=== PATIENT | male | born 1935 | race Caucasian/White ===

== ENCOUNTER 2018-11-08 07:53 | Day surgery (SDC) | payer OTHER | END 2018-11-08 10:30 | disposition home or self-care (01) | LOC: FASU-ENDO 07:53 ==

== ENCOUNTER 2020-05-16 11:19 | Emergency (ER) | payer OTHER | END 2020-05-16 15:02 | disposition home or self-care (01) | LOC: JVIRT 11:19 | DX: Z11.59 Encounter for screening for other viral diseases (principal) | CPT/HCPCS: C9803; Q3014-GT; U0003 ==